=== PATIENT | male | born 1955 | race Asian ===

== ENCOUNTER 2016-05-27 20:37 | Emergency (ER) | payer OTHER ==
[~2016-05-27] VITALS: Ht 175.3 cm; Wt 104.5 kg
[2016-05-27 20:44] VITALS: Ht 175.3 cm; Wt 104.5 kg
--- NOTE | 2016-05-27 22:45 | ERD ---
ER Documentation Chief Complaint Date/Time DATE: 05/27/16 TIME: 22:43 Chief Complaint low back pain sustained while lifting someone at work HPI This patient is a 60-year-old male with no significant medical history presenting to the emergency department for left-sided low back pain with radiation of the leg. 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 Afterwards he felt 10 out of 10 pain. The pain has began to reduce now and is currently a 6 out of 10. The pain is exacerbated by sitting for long periods. The pain is alleviated by walking. The patient denies any loss of bowel or bladder function, loss of function of the lower extremities, numbness, tingling , or other symptoms. ROS All systems reviewed and are negative except as per history of present illness. Medications Home Meds Active Scripts Cyclobenzaprine Hcl* (Cyclobenzaprine Hcl*) 10 Mg Tablet, 10 MG PO prn, #15 TAB Prov:YADI DE JESUS PA-C 05/27/16 Hydrocodone/Acetaminophen ([place] 5-325 Tablet) 1 Each Tablet, 1 TAB PO Q6H Y for PAIN, #7 TAB Prov:YADI DE JESUS PA-C 05/27/16 Naproxen* (Naprosyn*) 500 Mg Tablet, 500 MG PO BID Y for PAIN AND/OR INFLAMMATION, #20 TAB Prov:YADI DE JESUS PA-C 05/27/16 Allergies Allergies: Coded Allergies: No Known Allergy (Unverified , 05/27/16) FmHx Noncontributory for chief complaint Physical Exam Vitals Vital Signs Date Time Temp Pulse Resp B/P Pulse Ox O2 Delivery O2 Flow Rate FiO2 05/27/16 23:21 98.2 90 20 96 Room Air 05/27/16 20:44 98.3 83 20 161/81 98 Physical Exam INITIAL VITAL SIGNS: Reviewed by me. GENERAL: Alert and interactive. No acute distress. HEAD: Head is normocephalic and atraumatic. EYES: EOMI. No scleral icterus. No conjunctival injection. ENT: Moist mucosa. NECK: Supple. Full range of motion. BACK: Mild tenderness to palpation of the paraspinal muscles of the lumbar spine bilaterally. Negative straight leg raise. RESPIRATORY: Normal respiratory effort. Clear breath sounds bilaterally. No wheezing, rales, or rhonchi. CV: Regular rate and rhythm. Normal S1 S2. No S3 or S4. No murmurs. ABDOMEN: Soft, non-distended, non-tender. No guarding. No rebound. No masses. EXTREMITIES: No deformity. SKIN: Warm and dry. NEUROLOGIC: Alert and oriented x 4. Speech is normal. Moves all extremities equally. No motor or sensory deficits noted. Results 24 hrs Current Medications Medications (Trade) Dose Ordered Sig/Kenny Route PRN Reason Start Time Stop Time Status Last Admin Dose Admin Acetaminophen/ Hydrocodone Bitart ([place] (5/325)) 1 tab ONCE ONCE PO 05/27/16 23:00 05/27/16 23:01 DC 05/27/16 23:00 Procedures/MDM EMERGENCY DEPARTMENT COURSE / MEDICAL DECISION MAKING: This is a 60-year-old male who comes to the emergency room secondary to complaints of paraspinal lumbar pain with mild sciatica on the left side. The patient was given p.o. [place] in the department. On re-evaluation, the patient was feeling improved. Radiology: I do not believe the radiology studies are indicated at this time due to specific mechanism of injury and no loss of bowel or bladder function or loss of function of lower extremities. The primary diagnosis is back pain. Secondary diagnosis is sciatica I have low suspicion for cauda equina, spondylolisthesis, or herniated disc at this time. Discharge: I have discussed the lab results and diagnostic findings with the patient and answered any questions or concerns. The patient was discharged with a prescription for naproxen, [place], and Flexeril. The patient was advised to followup with their PMD in 1-2 days and to return to the Emergency Department if there are any new or worsening symptoms. The patient was informed that he may need advanced imaging if the pain continues. The patient understood and agreed with the diagnosis, treatment and plan. The patient is stable for discharge at this time. Departure Diagnosis: Primary Impression: Back pain Additional Impression: Sciatica Condition: Stable Additional Instructions: Follow-up with your primary care physician within 1 week. Return to the emergency department immediately should you have any new or worsening symptoms, uncontrolled fevers, or other unexplained symptoms. Take all medications as directed. YADI DE JESUS PA-C May 27, 2016 22:45
[2016-05-27] MEDS ORDERED: NAPR-260 PO (22:51)
[2016-05-27] MEDS ORDERED: HYDR-906 PO (22:51)
[2016-05-27] MEDS ORDERED: CYCL-319 PO (22:51)
[2016-05-27] MEDS ORDERED: HYDROCODONE/APAP (5/325) TAB PO ONE (23:00)
[2016-05-27 23:21] VITALS: PULSE 90; RESP 20; TEMP 98.2
== END 2016-05-27 23:18 | disposition home or self-care (01) ==
LOC: FTE 20:37
DX: S39.92XA Unspecified injury of lower back, initial encounter (principal); M54.32 Sciatica, left side; I10 Essential (primary) hypertension; E11.9 Type 2 diabetes mellitus without complications; X50.1XXA Overexertion from prolonged static or awkward postures, initial encounter; Y92.9 Unspecified place or not applicable
CPT/HCPCS: Z7502; Z7610; 99284

== ENCOUNTER 2017-02-14 17:22 | Emergency (ER) | payer OTHER ==
[~2017-02-14] VITALS: Ht 172.7 cm; Wt 102.0 kg
[~2017-02-14 17:22] MED LIST: CYCL-319 PO; HYDR-906 PO; NAPR-260 PO
[2017-02-14 17:51] VITALS: Ht 172.7 cm; Wt 102.0 kg
--- NOTE | 2017-02-14 21:53 | RADRPT ---
PROCEDURE: XR Lumbar Spine. CLINICAL INDICATION: Back pain. TECHNIQUE: Three views. AP, lateral and cone-down lateral view of the lumbar spine were obtained. COMPARISON: No prior studies are available for comparison. FINDINGS: There is normal stature and alignment of the vertebrae. There is no fracture. There is no lytic or blastic lesion. There are degenerative changes with disc space narrowing and osteophytes at L3-4 and L4-5. There is hypertrophy of the facet joints at L3-4, L4-5, and L5-S1. Vascular calcifications are present consistent with atherosclerosis. IMPRESSION: 1. Degenerative changes. 2. Atherosclerosis. 3. No acute abnormality. RPTAT: QQ .Parth Pearce MD, MD Date Time Electronically viewed and signed by .Parth Pearce MD, on 02/14/2017 21:53 .R/
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
[2017-02-14] MEDS ORDERED: ACET500C5 PO (22:16)
[2017-02-14] MEDS ORDERED: MTF1000T PO (22:16)
[2017-02-14 22:25] VITALS: BP 150/90; PULSE 78; RESP 16
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
== END 2017-02-14 22:26 | disposition home or self-care (01) ==
LOC: FTE 17:22
DX: M54.2 Cervicalgia (principal); M54.6 Pain in thoracic spine; I10 Essential (primary) hypertension; E11.9 Type 2 diabetes mellitus without complications; Z76.0 Encounter for issue of repeat prescription; Z79.84 Long term (current) use of oral hypoglycemic drugs
CPT/HCPCS: 72040; 72100; Z7502